=== PATIENT | male | born 2000 | race African-American/Black ===

== ENCOUNTER 2022-07-05 08:29 | Emergency (ER) | payer OTHER ==
[2022-07-05] MEDS ORDERED: AMOXICILLIN875 MG PO (08:58)
[2022-07-05] MEDS ORDERED: Motrin,Rufen800 MG PO (08:58)
== END 2022-07-05 09:23 | disposition home or self-care (01) ==
LOC: ED 08:29
DX: K08.89 Other specified disorders of teeth and supporting structures (principal)

== ENCOUNTER 2022-07-17 11:05 | Emergency (ER) | payer OTHER ==
[~2022-07-17] VITALS: Ht 172.7 cm; Wt 67.6 kg
[~2022-07-17 11:05] MED LIST: AMOXICILLIN875 MG PO; Motrin,Rufen800 MG PO
[2022-07-17] MEDS ORDERED: AMOXICILLIN500 M3 PO (12:33)
[2022-07-17] MEDS ORDERED: TYLENOL325 M1 PO (12:33)
[2022-07-17] MEDS ORDERED: NAPROXEN250 MG PO (12:33)
== END 2022-07-17 13:13 | disposition home or self-care (01) ==
LOC: ED 11:05
DX: K02.9 Dental caries, unspecified (principal)

== ENCOUNTER 2022-07-24 11:31 | Inpatient (IN) | payer OTHER ==
[~2022-07-24] VITALS: Ht 172.7 cm; Wt 73.7 kg
[~2022-07-24 11:31] MED LIST changes: +AMOXICILLIN500 M3 PO; +NAPROXEN250 MG PO; +TYLENOL325 M1 PO
[2022-07-24 11:39] VITALS: BP 108/69
[2022-07-24 12:33] LABS: BASO % 0.4 % (0.0-1.0); EOS # 0.2 10*3/uL (0.0-0.4); EOS % 4.1 % (1.0-4.0); HEMATOCRIT 41.8 % (42.0-52.0); LYMPH % 38.4 % (27.0-41.0); MEAN CELL VOLUME 90.5 fl (80.0-94.0); MEAN CORPUSCULAR HGB 30.7 pg (27.0-31.0); MEAN PLATELET VOLUME 9.3 fl (9.6-12.3); MONO # 0.6 10*3/uL (0.1-1.0); MONO % 10.9 % (3.0-9.0); NEUT # 2.4 10*3/uL (2.3-7.9); PLATELET COUNT AUTOMATED 209 10*3/uL (130-400); RED BLOOD COUNT 4.62 10*6/uL (4.50-5.90); RED CELL DISTRI WIDTH 12.4 % (0-14.5); WHITE BLOOD COUNT 5.2 10*3/uL (4.8-10.8)
[2022-07-24 12:54] LABS: ALKALINE PHOSPHATASE 82 U/L (45-117); BUN 11 mg/dl (7-24); CHLORIDE 109 mmol/L (98-107); CREATININE 0.75 mg/dL (0.70-1.30); SGOT/AST 39 IU/L (3-35); SGPT/ALT 37 U/L (12-78); SODIUM 141 mmol/L (136-145); TOTAL PROTEIN 7.5 gm/dL (6.4-8.2)
[2022-07-24 12:58] LABS: LIPASE 2090 U/L (73-393)
[2022-07-24 15:14] LABS: BILIRUBIN Negative (Negative); BLOOD Negative (Negative); CLARITY Cloudy (Clear); COLOR Yellow (Yellow); GLUCOSE Negative (Negative); KETONE Negative (Negative); LEUKO ESTERASE Negative (Negative); NITRITE Negative (Negative); PH 8.5 (4.5-8.0); UROBILINOGEN 0.2 E.U./dl (0.0-1.0)
[2022-07-24 15:21] LABS: URINE AMPHETAMINES < 1000 (1000ng/ml); URINE BARBITURATES < 200 (200ng/ml); URINE BENZODIAZEPINES < 200 (200ng/ml); URINE CANNABINOIDS (THC) > 50 (50ng/ml); URINE COCAINE > 300 (300ng/ml); URINE METHADONE < 300 (300ng/ml); URINE OPIATES < 300 (300ng/ml); URINE PHENCYCLIDINE < 25 (25ng/ml)
[2022-07-24 15:24] LABS: BACTERIA 2+; EPITHELIAL CELLS 0-2; WBC 0-2 wbc/hpf (0-5)
[2022-07-24 22:11] VITALS: BP 115/65
[2022-07-24 22:56] VITALS: BP 115/65
[2022-07-24 23:57] VITALS: BP 119/71
[2022-07-25 00:35] VITALS: BP 139/68
[2022-07-25 06:41] LABS: ACT PARTIAL THROMBO TIME 28.8 SECONDS (20.0-32.1); ALKALINE PHOSPHATASE 71 U/L (45-117); BUN 8 mg/dl (7-24); CHLORIDE 111 mmol/L (98-107); CHOLESTEROL 96 mg/dL (<200); CREATININE 0.64 mg/dL (0.70-1.30); FREE T4 1.29 ng/dl (0.76-1.46); INTERNATIONAL NORM RATIO 1.1 (2.0-3.5); LDL CHOLESTEROL 38 mg/dL (9-159); LIPASE 164 U/L (73-393); POTASSIUM 3.4 mmol/L (3.5-5.1); SGOT/AST 30 IU/L (3-35); SGPT/ALT 27 U/L (12-78); SODIUM 143 mmol/L (136-145); TOTAL PROTEIN 6.4 gm/dL (6.4-8.2); TRIGLYCERIDES 37 mg/dl (<150)
[2022-07-25 06:44] LABS: BASO % 0.3 % (0.0-1.0); EOS # 0.1 10*3/uL (0.0-0.4); EOS % 1.7 % (1.0-4.0); HEMATOCRIT 37.9 % (42.0-52.0); LYMPH # 2.2 10*3/uL (1.3-4.4); LYMPH % 31.1 % (27.0-41.0); MEAN CELL VOLUME 90.9 fl (80.0-94.0); MEAN CORPUSCULAR HGB 31.9 pg (27.0-31.0); MEAN CORPUSCULAR HGB CONC 35.1 g/dl (33.0-37.0); MEAN PLATELET VOLUME 9.9 fl (9.6-12.3); MONO # 0.5 10*3/uL (0.1-1.0); MONO % 7.4 % (3.0-9.0); NEUT # 4.2 10*3/uL (2.3-7.9); NEUT % 59.4 % (47.0-73.0); PLATELET COUNT AUTOMATED 191 10*3/uL (130-400); RED BLOOD COUNT 4.17 10*6/uL (4.50-5.90); RED CELL DISTRI WIDTH 12.4 % (0-14.5)
[2022-07-25 06:46] LABS: THYROID STIM HORMONE (HS) 0.231 uIU/ml (0.358-4.75)
[2022-07-25 07:13] LABS: VITAMIN D, 25-HYDROXY 14.4 ng/mL (30-100)
[2022-07-25 08:00] VITALS: BP 137/86
[2022-07-25 12:00] VITALS: BP 144/67
[2022-07-25] MEDS ORDERED: Ondansetron4 MG PO ×2 (13:19)
== END 2022-07-25 14:20 | disposition home or self-care (01) | DRG 282 ==
LOC: ED 11:31 → 4E 16:40 → EDHOLD 16:40 → 4E 07-25 00:04
PROVIDERS: Emergency Medicine; Student in an Organized Health Care Education/Training Program; ADMIT Emergency Medicine; ATTEND Emergency Medicine
DX: K85.90 Acute pancreatitis without necrosis or infection, unspecified (principal); F14.10 Cocaine abuse, uncomplicated; E87.8 Other disorders of electrolyte and fluid balance, not elsewhere classified; F12.10 Cannabis abuse, uncomplicated; F19.10 Other psychoactive substance abuse, uncomplicated; F17.210 Nicotine dependence, cigarettes, uncomplicated; D64.9 Anemia, unspecified; E87.6 Hypokalemia; E55.9 Vitamin D deficiency, unspecified; Z78.9 Other specified health status

== ENCOUNTER 2022-07-25 14:10 | Emergency (ER) | payer OTHER ==
[~2022-07-25] VITALS: Ht 172.7 cm; Wt 67.6 kg
[~2022-07-25 14:10] MED LIST changes: +Ondansetron4 MG PO
== END 2022-07-25 14:34 | disposition home or self-care (01) ==
LOC: ED 14:10
DX: K08.89 Other specified disorders of teeth and supporting structures (principal); F14.10 Cocaine abuse, uncomplicated; F12.10 Cannabis abuse, uncomplicated; F17.210 Nicotine dependence, cigarettes, uncomplicated

== ENCOUNTER 2022-12-27 08:14 | Emergency (ER) | payer OTHER ==
[~2022-12-27] VITALS: Wt 65.8 kg
[2022-12-27] MEDS ORDERED: TRAMADOL HCL50 MG PO (08:57)
[2022-12-27] MEDS ORDERED: CLINDAMYCIN HC300 MG PO (08:57)
== END 2022-12-27 09:18 | disposition home or self-care (01) ==
LOC: ED 08:14
DX: K08.89 Other specified disorders of teeth and supporting structures (principal); F14.10 Cocaine abuse, uncomplicated; F12.10 Cannabis abuse, uncomplicated; F17.210 Nicotine dependence, cigarettes, uncomplicated